=== PATIENT | female | born 1940 | race Caucasian/White ===

== ENCOUNTER 2016-07-05 10:28 | Day surgery (SDC) | payer MEDICARE, OTHER ==
--- NOTE | ~2016-07-05 | EGD ---
EGD REPORT [facility] [address] [address] NAME: NISHA FERRER : [birth year] STATUS : REG [facility]#: [id number] AGE: 75 ADM/REG DATE : 07/05/16 MR#: [id number] REPORT SERV DATE: 07/05/16 DICTATED BY: JESSE GRIJALVA DATE: 07/05/16 REPORT STATUS : Draft [facility]ANS[facility]: [facility] DATE: 07/05/16 Pulmonology Patient Name: Nisha Ferrer. Procedure Date: 07/05/2016 1:15 PM Date of : 1940 Attending MD: LOVE GRIJALVA MD Procedure Date No Time: 07/05/2016 Procedure: Bronchoscopy Indications: History of aero-digestive fistula and new cough Providers: LOVE GRIJALVA MD Referring MD: TERESA ROBERTO MD Medicines: Lidocaine 2% 20 mL Complications: No immediate complications Procedure: Pre-Anesthesia Assessment: - A History and Physical has been performed. Patient meds and allergies have been reviewed. The risks and benefits of the procedure and the sedation options and risks were discussed with the patient. All questions were answered and informed consent was obtained. Patient identification and proposed procedure were verified prior to the procedure by the physician and the nurse in the procedure room. Mental Status Examination: alert and oriented. Respiratory Examination: clear to auscultation. CV Examination: RRR, no murmurs, no S3 or S4. ASA Grade Assessment: III - A patient with severe systemic disease. After reviewing the risks and benefits, the patient was deemed in satisfactory condition to undergo the procedure. The anesthesia plan was to use general anesthesia. Immediately prior to administration of medications, the patient was re-assessed for adequacy to receive sedatives. The heart rate, respiratory rate, oxygen saturations, blood pressure, adequacy of pulmonary ventilation, and response to care were monitored throughout the procedure. The physical status of the patient was re-assessed after the procedure. After obtaining informed consent, the Bronchoscope was introduced through the mouth, via laryngeal mask airway and advanced to the tracheobronchial tree. The procedure was accomplished without difficulty. The patient tolerated the procedure well. Findings: The laryngeal mask airway is in normal position. The vocal cords move normally with breathing. The subglottic space is normal. The trachea is of normal caliber. The thania is sharp. The tracheobronchial tree was examined to at least the first subsegmental level. Bronchial mucosa and EGD REPORT [facility] [address] [place] [address] [address] [facility] [place]. [address] NAME: NISHA FERRER : [birth year] STATUS : REG [facility]#: [id number] AGE: 75 ADM/REG DATE : 07/05/16 MR#: [id number] REPORT SERV DATE: 07/05/16 DICTATED BY: JESSE GRIJALVA DATE: 07/05/16 REPORT STATUS : Draft TRANSCRIBED BY: [employer] DATE: 07/05/16 anatomy are normal; there are no endobronchial lesions, and no secretions. Impression: - The examination was normal - No evidence of aero-digestive fistula or inflammation at the prior site. Recommendation: - Follow up in clinic. - Proceed with PEJ tube removal tomorrow Attending Participation: I personally performed the entire procedure. LOVE GRIJALVA MD 07/05/2016 1:42 PM This report has been signed electronically. Number of Addenda: 0 Note Initiated On: 07/05/2016 1:15 PM [address] [place] [address]
[~2016-07-05 10:28] MED LIST: 8 HOUR650 MG PEG; 8 HOUR650 MG PO; AMB10 PO; AMB5 PO; ASAB PEG; ASAEC PO; ATEN25 PO; ATROVENTUD INH; ATV.5 PEG; ATV.5 PO; AUG875 PO; BISR PR; BREO ELLIPTA INH; BYSTOLIC2.5 MG PO; BYSTOLIC5 MG PO; C25 PO; C5 PO; CELEXA20 PO; CHLOR-PHENIR4 MG PEG; CO Q-10100 MG PEG; COENZYME Q10 PO; COZ25 PO; CRESTOR10 PO; CRESTOR20 MG PO; DELSYM30 MG/5 ML PO; DIGITEK0.125 MG PEG; DIGITEK0.125 MG PO; DIGITEK0.25 MG PO; DIGOXIN; DSS PO; DUONEB INH; EFFIENT10 PO; ELIQUIS 5 MG TAB5 MG PEG; ESTRADIOL0.025 MG TOP; FESO4 PO; FISH OIL PO; FISH-EPA1000 MG PO; FLONASE NAS; FOLIC ACID400 MC1 PO; FOLIC PO; GGACUDL PEG; GGEXPUD PO; GUIATUSS AC PEG; HALF81 PO; IMDUR30 PO; ISOSORBIDE PO; KCL20UDL PEG; KDUR20 PO; KLOR-CON 1010 MEQ PO; KLOR-CON M2020 MEQ PO; L20 PEG; L20 PO; L40 PO; LACT30UDL PEG; LACT30UDL PO; LAN25 PO; LIPITOR40 PEG; LIPITOR40 PO; LOP25 PEG; M-CLEAR WC PO; MAALOX MAX PEG; MAGNESIUM 250MG PO; MAGOX4 PEG; MAGOX4 PO; MUCO10%4ML PO; NITROSTAT0.4 MG SL; NORCO1 TA1 PEG; OCULAR LUBRICANT OPH; P20 PO; PLAVIX PO; PRIN2.5 PO; PROAIR HFA INH; PROBIOTIC PO; PROTONIX PEG; PROTONIX PO; PROVENTSOL INH; RAN500 PO; RANEXA1000 MG PO; RYTHMOL225 MG PEG; RYTHMOL225 MG PO; RYTHMOL300 MG PO; SINGULAIR1 PEG; SINGULAIR1 PO; SPIRIVA INH; SPIRIVA RESPIMAT INH; SUCR PO; SYMBICORT 160/41 INH INH; Spiriva Handihaler; T PO; TEARS PURE OPH; TESS PEG; TESS PO; VALTREX1 GM PEG; VFEND200 PEG; VIRTUSSIN PO; VIVELLE SY0.025 MG/2 TOP; VIVELLE-DOT TOP; VIVELLE-DOT0.025 MG TOP; XOPENEX0.63 MG INH; ZESTRIL2.5 MG PO; ZOCOR40 PO; ZOFRAN IM; ZYRTEC ALLGY10 MG PO; [UNRECOGNIZED DRUG - OTHER] NAS
[2016-07-05 10:51] LABS: BASOPHILS 0.1 %; BASOPHILS ABSOLUTE 0.01 10/3/uL (0.0-0.16); EOSINOPHILS 0.7 %; EOSINOPHILS ABSOLUTE 0.07 10/3/uL (0.0-0.53); HEMOGLOBIN 12.2 g/dL (12.0-16.0); IMMATURE GRANULOCYTES 0.2 %; IMMATURE GRANULOCYTES ABSOLUTE 0.02 10/3/uL (0.0-0.11); LYMPHOCYTES 17.3 %; MEAN PLATELET VOLUME 11.2 fL (9.2-13.0); MONOCYTES 6.9 %; MONOCYTES ABSOLUTE 0.68 10/3/uL (0.21-1.20); NEUTROPHILS 74.8 %; NEUTROPHILS ABSOLUTE 7.36 10/3/uL (2.02-8.40); PLATELET COUNT 339 10/3/uL (150-400); RBC DISTRIBUTION WIDTH 15.5 % (12.0-16.0); WHITE BLOOD CELLS 9.8 10/3/uL (4.5-10.5)
[2016-07-05 10:53] LABS: HEMATOCRIT 39.5 % (36.0-48.0); MANUAL DIFF NO %; MEAN CORPUS HGB CONC 30.9 g/dL (32.0-36.0); MEAN CORPUSCULAR HEMOGLOB 29.3 pg (26.0-34.0); RED CELL COUNT 4.16 10/6/uL (4.0-5.6)
[2016-07-05 11:02] LABS: BUN (BLOOD UREA NITROGEN) 13 MG/DL (6-23); CALCIUM, SERUM 9.3 MG/DL (8.5-10.4); CHLORIDE, SERUM 98 MMOL/L (96-112); CO2 (CARBON DIOXIDE) 33 MMOL/L (24-34); CREATININE 0.83 MG/DL (0.55-1.02); GFR AFRICAN AMERICAN 79 ML/MIN (>=60); GFR NON AFRICAN AMERICAN 68 ML/MIN (>=60); GLUCOSE, SERUM 117 MG/DL (60-99); POTASSIUM, SERUM 4.3 MMOL/L (3.5-5.3); SODIUM, SERUM 138 MMOL/L (135-148)
[2016-07-05 11:04] LABS: INTERNATIONAL NORMAL RATI 1.2 UNITS (-); PARTIAL THROMBO TIME 33.1 SEC (22.5-37.2); PROTIME (NOT ORD) 15.2 SEC (12.0-14.5)
[2016-09-14] MEDS ORDERED: DELSYM30 MG/5 ML PO (15:21)
[2016-09-14] MEDS ORDERED: PROAIR HFA INH (15:22)
[2016-12-03] MEDS ORDERED: [UNRECOGNIZED DRUG - OTHER] PO (15:46)
[2016-12-03] MEDS ORDERED: PROAIR HFA INH (15:47)
[2016-12-03] MEDS ORDERED: MAG OXIDE250 MG PO (15:47)
[2016-12-03] MEDS ORDERED: SPIRIVA INH (15:47)
[2016-12-03] MEDS ORDERED: DSS PO (15:47)
[2016-12-03] MEDS ORDERED: ALIGN4 MG PO (15:47)
[2016-12-03] MEDS ORDERED: NITROSTAT0.4 MG SL (15:48)
[2016-12-06] MEDS ORDERED: LEVAQUIN750 MG PO (13:30)
[2016-12-06] MEDS ORDERED: ULTRAM50 PO (13:34)
[2016-12-06] MEDS ORDERED: MACROBID PO (13:39)
== END 2016-07-05 23:59 | disposition home or self-care (01) ==
LOC: DMU 10:28
PROVIDERS: Internal Medicine
PROC: 0BJ08ZZ Inspection of Tracheobronchial Tree, Via Natural or Artificial Opening Endoscopic (ICD-10-PCS; principal; 2016-07-05 12:30)
DX: R05 Cough (principal); K22.8 Other specified diseases of esophagus; I10 Essential (primary) hypertension; I25.10 Atherosclerotic heart disease of native coronary artery without angina pectoris; J44.9 Chronic obstructive pulmonary disease, unspecified; Z91.041 Radiographic dye allergy status; Z79.01 Long term (current) use of anticoagulants; Z79.899 Other long term (current) drug therapy
CPT/HCPCS: 71010; 80048; 85025; 85610; 85730; 93005; J3010

== ENCOUNTER 2016-09-18 08:02 | Day surgery (SDC) | payer MEDICARE, OTHER ==
--- NOTE | ~2016-09-18 | EGD ---
EGD REPORT [facility] [address] [address] NAME: NISHA FERRER : [birth year] STATUS : REG [facility]#: [id number] AGE: 76 ADM/REG DATE : 09/18/16 MR#: [id number] REPORT SERV DATE: 09/18/16 DICTATED BY: JESSE GRIJALVA DATE: 09/18/16 REPORT STATUS : Draft [facility]ANS[facility]IB[facility]: [facility] DATE: 09/18/16 Pulmonology Patient Name: Nisha Ferrer Procedure Date: 09/18/2016 10:38 AM Date of : 1940 Attending MD: LOVE GRIJALVA MD Procedure Date No Time: 09/18/2016 Procedure: Bronchoscopy Indications: Chronic Cough Providers: LOVE GRIJALVA MD Referring MD: YANETH JULIAN IV, LOVE GRIJALVA MD Medicines: Lidocaine 2% 20 mL Complications: No immediate complications Procedure: Pre-Anesthesia Assessment: - A History and Physical has been performed. Patient meds and allergies have been reviewed. The risks and benefits of the procedure and the sedation options and risks were discussed with the patient. All questions were answered and informed consent was obtained. Patient identification and proposed procedure were verified prior to the procedure by the physician and the nurse in the pre-procedure area in the procedure room. Mental Status Examination: alert and oriented. Airway Examination: normal oropharyngeal airway. Respiratory Examination: clear to auscultation. CV Examination: normal and RRR, no murmurs, no S3 or S4. ASA Grade Assessment: IV - A patient with severe systemic disease that is a constant threat to life. After reviewing the risks and benefits, the patient was deemed in satisfactory condition to undergo the procedure. The anesthesia plan was to use general anesthesia. Immediately prior to administration of medications, the patient was re-assessed for adequacy to receive sedatives. The heart rate, respiratory rate, oxygen saturations, blood pressure, adequacy of pulmonary ventilation, and response to care were monitored throughout the procedure. The physical status of the patient was re-assessed after the procedure. After obtaining informed consent, the Bronchoscope was introduced through the mouth, via laryngeal mask airway and advanced to the tracheobronchial tree. The procedure was accomplished without difficulty. The patient tolerated the procedure well. The procedure was accomplished without difficulty. Findings: The laryngeal mask airway is in normal position. The vocal cords move EGD REPORT [place] [id number] [facility] [place]. [address] NAME: NISHA FERRER GAURAV : 38 STATUS : REG [facility] PAT#: [id number] AGE: 76 ADM/REG DATE : 09/18/16 MR#: [id number] REPORT SERV DATE: 09/18/16 DICTATED BY: JESSE GRIJALVA DATE: 09/18/16 REPORT STATUS : Draft TRANSCRIBED BY: [employer] DATE: 09/18/16 normally with breathing. The subglottic space is normal. The trachea is of normal caliber. The thania is sharp. The tracheobronchial tree was examined to at least the first subsegmental level. A small endobronchial nodule noted in the LLL. An endobronchial biopsy was performed in the left lower lobe of the lung using a forceps and sent for histopathology examination. One sample was obtained. Brushings were obtained in the left lower lobe of the lung and sent for routine cytology. One sample was obtained. Bronchoalveolar lavage was performed in the lingula of the lung and sent for cell count, cytology, bacterial culture, viral smears \T\ culture, and fungal and AFB analysis. 180 mL of fluid were instilled. 30 mL were returned. The return was cellular. Mucous plugs were present in the return fluid Impression: - A small nodule was noted in the LLL. - An endobronchial biopsy was performed. - Brushings were obtained. - Bronchoalveolar lavage was performed. Recommendation: - Await test results. - Chest X-ray. - Follow up in clinic. Attending Participation: I personally performed the entire procedure. LOVE GRIJALVA MD 09/18/2016 11:09 AM This report has been signed electronically. Number of Addenda: 0 Note Initiated On: 09/18/2016 10:38 AM [address] [id number]
--- NOTE | ~2016-09-18 | EGD ---
EGD REPORT [facility] [address] [address] NAME: NISHA FERRER : [birth year] STATUS : REG [facility]#: [id number] AGE: 76 ADM/REG DATE : 09/18/16 MR#: [id number] REPORT SERV DATE: 09/20/16 DICTATED BY: JESSE GRIJALVA DATE: 09/20/16 REPORT STATUS : Draft [facility] DATE: 09/20/16 Pulmonology Patient Name: Nisha Ferrer Procedure Date: 09/18/2016 10:38 AM Date of : 1940 Attending MD: LOVE GRIJALVA MD Procedure Date No Time: 09/18/2016 Procedure: Bronchoscopy Indications: Chronic Cough Providers: LOVE GRIJALVA MD Referring MD: YANETH JULIAN IV, LOVE GRIJALVA MD Medicines: Lidocaine 2% 20 mL Complications: No immediate complications Procedure: Pre-Anesthesia Assessment: - A History and Physical has been performed. Patient meds and allergies have been reviewed. The risks and benefits of the procedure and the sedation options and risks were discussed with the patient. All questions were answered and informed consent was obtained. Patient identification and proposed procedure were verified prior to the procedure by the physician and the nurse in the pre-procedure area in the procedure room. Mental Status Examination: alert and oriented. Airway Examination: normal oropharyngeal airway. Respiratory Examination: clear to auscultation. CV Examination: normal and RRR, no murmurs, no S3 or S4. ASA Grade Assessment: IV - A patient with severe systemic disease that is a constant threat to life. After reviewing the risks and benefits, the patient was deemed in satisfactory condition to undergo the procedure. The anesthesia plan was to use general anesthesia. Immediately prior to administration of medications, the patient was re-assessed for adequacy to receive sedatives. The heart rate, respiratory rate, oxygen saturations, blood pressure, adequacy of pulmonary ventilation, and response to care were monitored throughout the procedure. The physical status of the patient was re-assessed after the procedure. After obtaining informed consent, the Bronchoscope was introduced through the mouth, via laryngeal mask airway and advanced to the tracheobronchial tree. The procedure was accomplished without difficulty. The patient tolerated the procedure well. The procedure was accomplished without difficulty. Findings: The laryngeal mask airway is in normal position. The vocal cords move EGD REPORT [place] [id number] [facility] [place]. [address] NAME: NISHA FERRER GAURAV : 38 STATUS : REG [facility] PAT#: [id number] AGE: 76 ADM/REG DATE : 09/18/16 MR#: [id number] REPORT SERV DATE: 09/20/16 DICTATED BY: JESSE GRIJALVA DATE: 09/20/16 REPORT STATUS : Draft TRANSCRIBED BY: [employer] DATE: 09/20/16 normally with breathing. The subglottic space is normal. The trachea is of normal caliber. The thania is sharp. The tracheobronchial tree was examined to at least the first subsegmental level. A small endobronchial nodule noted in the LLL. An endobronchial biopsy was performed in the left lower lobe of the lung using a forceps and sent for histopathology examination. One sample was obtained. Brushings were obtained in the left lower lobe of the lung and sent for routine cytology. One sample was obtained. Bronchoalveolar lavage was performed in the lingula of the lung and sent for cell count, cytology, bacterial culture, viral smears \T\ culture, and fungal and AFB analysis. 180 mL of fluid were instilled. 30 mL were returned. The return was cellular. Mucous plugs were present in the return fluid Impression: - A small nodule was noted in the LLL. - An endobronchial biopsy was performed. - Brushings were obtained. - Bronchoalveolar lavage was performed. Recommendation: - Await test results. - Chest X-ray. - Follow up in clinic. Attending Participation: I personally performed the entire procedure. LOVE GRIJALVA MD 09/18/2016 11:09 AM This report has been signed electronically. Number of Addenda: 0 Note Initiated On: 09/18/2016 10:38 AM [address] [id number]
[2016-09-18 08:40] LABS: BASOPHILS 0.2 %; BASOPHILS ABSOLUTE 0.02 10/3/uL (0.0-0.16); EOSINOPHILS 1.6 %; EOSINOPHILS ABSOLUTE 0.15 10/3/uL (0.0-0.53); IMMATURE GRANULOCYTES 0.2 %; IMMATURE GRANULOCYTES ABSOLUTE 0.02 10/3/uL (0.0-0.11); LYMPHOCYTES 19.5 %; LYMPHOCYTES ABSOLUTE 1.79 10/3/uL (0.67-4.30); MEAN CORPUSCULAR HEMOGLOB 29.2 pg (26.0-34.0); MEAN CORPUSCULAR VOLUME 94.4 fL (80-100); MEAN PLATELET VOLUME 10.3 fL (9.2-13.0); MONOCYTES 9.1 %; MONOCYTES ABSOLUTE 0.83 10/3/uL (0.21-1.20); NEUTROPHILS 69.4 %; NEUTROPHILS ABSOLUTE 6.35 10/3/uL (2.02-8.40); PLATELET COUNT 315 10/3/uL (150-400); RBC DISTRIBUTION WIDTH 16.7 % (12.0-16.0); RED CELL COUNT 3.42 10/6/uL (4.0-5.6); WHITE BLOOD CELLS 9.2 10/3/uL (4.5-10.5)
[2016-09-18 08:41] LABS: HEMATOCRIT 32.3 % (36.0-48.0); MANUAL DIFF NO %
[2016-09-18 08:49] LABS: INTERNATIONAL NORMAL RATI 1.1 UNITS (-); PROTIME (NOT ORD) 14.3 SEC (12.0-14.5)
[2016-09-18 09:19] LABS: BUN (BLOOD UREA NITROGEN) 18 MG/DL (6-23); CALCIUM, SERUM 9.5 MG/DL (8.5-10.4); CHLORIDE, SERUM 107 MMOL/L (96-112); CO2 (CARBON DIOXIDE) 29 MMOL/L (24-34); CREATININE 0.73 MG/DL (0.55-1.02); GFR AFRICAN AMERICAN 92 ML/MIN (>=60); GFR NON AFRICAN AMERICAN 79 ML/MIN (>=60); GLUCOSE, SERUM 93 MG/DL (60-99); POTASSIUM, SERUM 4.8 MMOL/L (3.5-5.3); SODIUM, SERUM 141 MMOL/L (135-148)
[2016-09-18 12:55] LABS: BD FL LYMPH (NOT ORD) 6 %; BD FL SOURCE (NOT ORD) BAL; BF BASO (NOT OF) 0 %; BF LARGE MONONUCLEAR 88 %; BF TOTAL CELL CT (NOT ORD 207 /MM3; BODY FLUID EOS (NOT ORD) 0 %; BODY FLUID RBC (NOT ORD) 1000 /MM3; BODY FLUID SEG (NOT ORD) 6 %
[2016-12-03] MEDS ORDERED: [UNRECOGNIZED DRUG - OTHER] PO (15:46)
[2016-12-03] MEDS ORDERED: MAG OXIDE250 MG PO (15:47)
[2016-12-03] MEDS ORDERED: ALIGN4 MG PO (15:47)
[2016-12-03] MEDS ORDERED: PROAIR HFA INH (15:47)
[2016-12-03] MEDS ORDERED: DSS PO (15:47)
[2016-12-03] MEDS ORDERED: SPIRIVA INH (15:47)
[2016-12-03] MEDS ORDERED: NITROSTAT0.4 MG SL (15:48)
[2016-12-06] MEDS ORDERED: LEVAQUIN750 MG PO (13:30)
[2016-12-06] MEDS ORDERED: ULTRAM50 PO (13:34)
[2016-12-06] MEDS ORDERED: MACROBID PO (13:39)
== END 2016-09-18 23:59 | disposition home or self-care (01) ==
LOC: DMU 08:02
PROVIDERS: Anesthesiology; Internal Medicine
PROC: 0B9H8ZX Drainage of Lung Lingula, Via Natural or Artificial Opening Endoscopic, Diagnostic (ICD-10-PCS; principal; 2016-09-18 09:30)
PROC: 0BBB8ZX Excision of Left Lower Lobe Bronchus, Via Natural or Artificial Opening Endoscopic, Diagnostic (ICD-10-PCS; 2016-09-18 09:30)
PROC: 0BBJ8ZX Excision of Left Lower Lung Lobe, Via Natural or Artificial Opening Endoscopic, Diagnostic (ICD-10-PCS; 2016-09-18 09:30)
DX: R05 Cough (principal); I48.91 Unspecified atrial fibrillation; E78.00 Pure hypercholesterolemia, unspecified; E78.5 Hyperlipidemia, unspecified; I25.10 Atherosclerotic heart disease of native coronary artery without angina pectoris; J44.9 Chronic obstructive pulmonary disease, unspecified; K21.9 Gastro-esophageal reflux disease without esophagitis; I10 Essential (primary) hypertension; Z87.442 Personal history of urinary calculi; Z95.1 Presence of aortocoronary bypass graft; Z91.041 Radiographic dye allergy status; Z86.73 Personal history of transient ischemic attack (TIA), and cerebral infarction without residual deficits; Z88.8 Allergy status to other drugs, medicaments and biological substances; Z79.82 Long term (current) use of aspirin; Z79.899 Other long term (current) drug therapy; Z90.710 Acquired absence of both cervix and uterus; Z98.890 Other specified postprocedural states; Z90.49 Acquired absence of other specified parts of digestive tract
CPT/HCPCS: 71010; 80048; 85025; 85610; 85730; 87015; 87070; 87102; 87116; 87205; 88112; 88305; 89051; 93005

== ENCOUNTER 2016-10-17 13:05 | Inpatient (IN) | payer MEDICARE, OTHER ==
--- NOTE | ~2016-10-17 | DS ---
Discharge Summary [facility] [address] [place]. [address] NAME: JORJE STRICKLAND : 38 STATUS : DIS IN PAT#: [id number] AGE: 76 ADM/REG DATE : 10/17/16 MR#: [id number] REPORT SERV DATE: 10/22/16 DICTATED BY: DIEGO GE DATE: 10/21/16 REPORT STATUS : Draft TRANSCRIBED BY: [employer] DATE: 10/21/16 ADMISSION DATE: 10/17/2016 DISCHARGE DATE: 10/21/2016 DISCHARGE DIAGNOSES: 1. Sepsis due to acute Klebsiella pneumoniae pyelonephritis. 2. Acute Klebsiella pneumoniae pyelonephritis, right side. 3. Paroxysmal atrial fibrillation/flutter with previous ablations. 4. 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 5. Chronic obstructive pulmonary disease. 6. Peripheral arterial disease. 7. History of previous renal stones. 8. Hypertension. 9. Chronic elevated left hemidiaphragm. 10.Previous aspiration pneumonitis associated with bronchoesophageal fistula. 11.Chronic anxiety and insomnia. HISTORY: This patient developed sudden chills, fever, nausea, along with some right flank pain. Because of this, she came to the emergency room at [facility]. Temperature was 100, white count elevated at 15.2. CT scan of the abdomen and pelvis showing some perirenal fat plane infiltration on the right kidney, concerning for pyelonephritis. Urinalysis was consistent with urinary tract infection with positive nitrite, moderate leukocyte esterase, 97 white blood cells, occasional bacteria, and 2 red blood cells. In the emergency room, she received not only IV fluids, but also a dose of Rocephin intravenously. Our admitting partner continued some intravenous saline, but switched her antibiotics over to cefepime 1 g IV every six hours which Pharmacy adjusted to every eight hours based on her estimated creatinine clearance of approximately 45 mL/minute. The patient's procalcitonin was elevated at 2.38. Her serum digoxin level was 0.7. Her creatinine stayed normal through her time here in the hospital. Her white blood count went up to 18.7, then 16.5, then normalized at 10.3. Her right flank pain resolved. No fevers. The patient was noted to have hemoglobin of 9.9. She had an MCHC that was low at 30.9. Her iron studies reveal a low serum iron of 9, low percent iron saturation of 3, TIBC of 299, and ferritin of 51, which is relatively low given the acute inflammatory scenario that she is in. Her B12 level was normal at 408. Therefore, we have elected to supplement her with oral iron and have her PCP follow up her stool guaiac since she is on Eliquis and follow up her hemoglobin and iron level as well. The patient states and corroborates that she has just had a poor appetite over the last two weeks. Prior to that, her appetite was good. She, of course, had gone through major stress with the bronchoesophageal fistula for which she had a stent and she had a J- tube, but she has been on her oral diet and had been doing well until 2 weeks ago. Her TSH was normal here. Her appetite has started to improve. Her PCP and Dr. Lane, her GI, will follow this up as well. Discharge Summary [address] [address] NAME: JORJE STRICKLAND GAURAV : 38 STATUS : DIS IN PAT#: [id number] AGE: 76 ADM/REG DATE : 10/17/16 MR#: [id number] REPORT SERV DATE: 10/22/16 DICTATED BY: DIEGO GE DATE: 10/21/16 REPORT STATUS : Draft TRANSCRIBED BY: [employer] DATE: 10/21/16 The urine cultures came back showing greater than 100,000 E. coli. Blood cultures were negative. The cefepime was simplified to Ancef and at discharge, switched over to cefadroxil. DISCHARGE MEDICATIONS: Eliquis 5 mg b.i.d., aspirin 81 mg daily, Tenormin 12.5 mg daily, Lipitor 40 mg daily, Celexa 20 mg at bedtime, digoxin half of a 0.125-mg tablet at bedtime, Colace 100 mg b.i.d., folic acid 800 mcg daily, Lasix 40 mg daily, Zyrtec 10 mg daily, Singulair 10 mg at bedtime, Protonix 40 mg daily, KCl 20 mEq daily, Spiriva one capsule inhaled daily, Tylenol p.r.n. pain that is mild, Flonase nasal spray p.r.n., Ativan 0.5 mg at bedtime as needed for insomnia which is a chronic medicine for her, nitroglycerin 0.4 mg sublingual p.r.n. chest pain, Ambien 10 mg at bedtime as needed for sleep which is a chronic medicine also for her, albuterol HFA two puffs p.r.n. shortness of breath, magnesium 250 mg daily, she takes an xnzv-hjg-ixydkqh probiotic chronically and we are recommending she continue that, cefadroxil 1000 mg p.o. b.i.d. for another 5 days. I spent 27 minutes today with the patient and her and with discharge planning. DICTATED BY: Diego Ge M.D. RSG/MODL Diego Ge M.D. / [id number] CC: Radha Davila M.D. Krishnendu Bhadra, M.D. David Collins, M.D. Dannis Hood Jr., M.D. Nathan Mull IV, M.D. David Sahaj, M.D.
--- NOTE | ~2016-10-17 | HP ---
History And Physical [place] [address] [place]. [address] NAME: JORJE FERRER : [birth year] STATUS : ADM IN [facility]#: [id number] AGE: 76 ADM/REG DATE : 10/17/16 MR#: [id number] REPORT SERV DATE: 10/18/16 DICTATED BY: ANKUR GROVER DATE: 10/17/16 REPORT STATUS : Draft TRANSCRIBED BY: [employer] DATE: 10/17/16 DATE OF ADMISSION: 10/17/2016 POINT OF ENTRY: [facility] Emergency Department. PRIMARY EN[employer]ISE RESOURCE PLANNER: Divine Burleson M.D. CHIEF COMPLAINT: Chills, rigors, and right flank pain. HISTORY OF PRESENT ILLNESS: Ms Ferrer is a 76-year-old female with history of coronary artery disease, atrial fibrillation, atrial flutter, peripheral arterial disease, COPD, and a history of bronchoesophageal fistula, who presents to the emergency department today with a one-day history of severe chills, rigors, and right flank pain. The patient states she has had some dysuria as well as urinary odor for the past two or three days. While shopping today at [employer] she developed the acute onset of chills, rigors, and right-sided flank pain. The patient does states she checked her temperature as well and was about 100 degrees Fahrenheit. They subsequently presented to the emergency department for further evaluation. She denies any chest pain, palpitations, worsening of her baseline shortness of breath, abdominal pain, diarrhea, constipation, melena, hematochezia, hematuria, or hematemesis. She does report, she is having some nausea as well as frequent dry heaving as well. Comprehensive system otherwise negative unless listed in history of present illness. Initial evaluation in the emergency department was notable for a heart rate of 66, but a temperature of 100.3 degrees Fahrenheit. White count was elevated at 15,200. Urinalysis was positive for urinary tract infection. CT of the abdomen and pelvis were notable for some cali-renal fat plane infiltration of the right kidney concerning for pyelonephritis, she was subsequently admitted to the Hospitalist Service for further evaluation and management. PREVIOUS MEDICAL HISTORY: 1. Coronary artery disease with prior PCI. 2. Atrial flutter and atrial fibrillation, status post multiple cardiac ablations. 3. Bronchoesophageal fistula status post stent placement. 4. Peripheral arterial disease. 5. Chronic vertigo. 6. Iron-deficiency anemia. 7. Hypertension. 8. Hyperlipidemia. 9. COPD, not on home oxygen. 10.Chronically elevated left hemidiaphragm. 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 12.History of aspiration and aspiration pneumonitis. History And Physical [address] [address] NAME: JORJE FERRER : [birth year] STATUS : ADM IN [facility]#: [id number] AGE: 76 ADM/REG DATE : 10/17/16 MR#: [id number] REPORT SERV DATE: 10/18/16 DICTATED BY: ANKUR GROVER DATE: 10/17/16 REPORT STATUS : Draft TRANSCRIBED BY: [employer]LINE DATE: 10/17/16 PAST SURGICAL HISTORY: 1. Multiple cardiac ablations. 2. Sinus surgery. 3. Abdominal hysterectomy. 4. Cholecystectomy. ALLERGIES: TO IV CONTRAST, PHENERGAN, AND ADHESIVE TAPE. HOME MEDICATIONS: 1. Tylenol 650 mg q.8 hours. 2. ProAir two puff inhalation q.h.s. 3. Eliquis 5 mg b.i.d. 4. Aspirin 81 mg daily. 5. Atenolol 12.5 mg daily. 6. Atorvastatin 40 mg q.h.s. 7. Zyrtec 10 mg daily. 8. Celexa 20 mg q.h.s. 9. Digoxin 0.0625 mg q.h.s. 10.Colace 100 mg q.h.s. 11.Flonase nasal spray, one spray nasal q.h.s. 12.Folic acid 800 mcg daily. 13.Lasix 40 mg daily. 14.Ativan 0.5 mg q.h.s. and p.r.n. 15.Singulair 10 mg q.h.s. 16.Nitroglycerin p.r.n. 17.Protonix 40 mg daily. 18.Potassium chloride 20 mEq daily. 19.Spiriva one cap inhalation daily. 20.Magnesium 250 mg daily. 21.Zmel-sal-byhwlzq probiotic one tablet daily. 22.Ambien 10 mg q.h.s. p.r.n. SOCIAL HISTORY: Denies any tobacco, alcohol, or illicits. FAMILY HISTORY: Mother with diabetes and coronary artery disease. Father also with diabetes and coronary artery disease. Siblings with coronary artery disease. LABS AND IMAGIN. White count is 15.2, hemoglobin is 9.9, hematocrit is 32.5, and platelet count is 255. INR 1.9. 2. Sodium 139, potassium 4.2, chloride 104, carbon dioxide 25, BUN 15, creatinine 0.87, glucose is 110, calcium is 9.0, protein is 7.2, albumin 3.4, bilirubin is 1.5, ALT is 22, AST is 25, and alkaline phosphatase is 149. 3. Lactic acid is 1.3, procalcitonin is 0.19. 4. Urinalysis; spec gravity is 1.011 hazy with moderate leukocyte esterase, positive nitrites, with 8 red and 97 white blood cells per high-powered field. 5. Chest x-ray per my review shows stable elevated left hemidiaphragm as well as evidence History And Physical [address] [address] NAME: JORJE FERRER : 38 STATUS : ADM IN [facility]#: [id number] AGE: 76 ADM/REG DATE : 10/17/16 MR#: [id number] REPORT SERV DATE: 10/18/16 DICTATED BY: ANKUR GROVER DATE: 10/17/16 REPORT STATUS : Draft TRANSCRIBED BY: [employer]LINE DATE: 10/17/16 of prior midline sternotomy, otherwise no acute cardiopulmonary abnormality. 6. CT scan of the abdomen and pelvis shows subtle perirenal fat infiltration around the right kidney as well as bilateral nonobstructing renal calculi. PHYSICAL EXAMINATION: VITAL SIGNS: Temperature is 100.3 degrees Fahrenheit, pulse of 66, respirations 18, saturating 100% on room air, and blood pressure 167/71. On recheck, pulse is now 70, blood pressure 130/98. GENERAL: The patient is awake and alert, in no acute distress. Resting comfortably in bed. She is an elderly female. is at bedside. HEENT: Atraumatic and normocephalic. Moist mucous membranes. Pupils equal, round, reactive to light and accommodation. Extraocular eye movements intact. No scleral icterus. NECK: No jugular venous distention. No carotid bruits. CARDIAC: Regular rate and rhythm. No murmurs or gallops. Normal S1, S2. LUNGS: Clear to auscultation bilaterally. No wheezes, rhonchi, or crackles. Does have decreased breath sounds at bases and prolonged respiratory phase. ABDOMEN: Soft, mildly tender to palpation over the right flank and in the costovertebral angle. Otherwise, no rebound, guarding, or rigidity. EXTREMITIES: Warm and perfused. No cyanosis, clubbing, or edema. SKIN: Warm and dry. PSYCH: Affect appropriate. NEURO: Alert and oriented x3. Cranial nerves 2 through 12 grossly intact. Speech is normal. Gait is not assessed. ASSESSMENT AND PLAN: Ms Ferrer is a 76-year-old female, who presents with a few days of dysuria as well as chills, rigors, and low-grade fevers and flank pain, and found to have evidence of sepsis and pyelonephritis. PROBLEM LIST: 1. Pyelonephritis. 2. Sepsis. 3. History of atrial flutter and atrial fibrillation. 4. History of bronchoesophageal fistula. 5. History of chronic obstructive pulmonary disease. 6. History of coronary artery disease. PLAN: 1. Pyelonephritis with sepsis. We will place the patient on IV cefepime as well as continue IV fluids. Her lactic acid is within normal limits as is procalcitonin level. Follow up urine and blood cultures. 2. Nephrolithiasis. Pain control p.r.n. as well as IV fluids. 3. History of atrial fibrillation, atrial flutter. EKG is pending, but per review of telemetry, she appears to be in normal sinus rhythm. Continue beta manuel and Eliquis. 4. COPD. No evidence of any acute exacerbation at this time. 5. History of coronary artery disease. Checking EKG, but she denies any chest pain. 6. DVT prophylaxis. The patient is already on Eliquis. History And Physical [address] [address] NAME: JORJE FERRER : 38 STATUS : ADM IN [facility]#: [id number] AGE: 76 ADM/REG DATE : 10/17/16 MR#: [id number] REPORT SERV DATE: 10/18/16 DICTATED BY: ANKUR GROVER DATE: 10/17/16 REPORT STATUS : Draft TRANSCRIBED BY: [employer]LINE DATE: 10/17/16 CODE STATUS: The patient wished to be full code. JCLj/MERLINE Ankur Grover MD / [id number] CC: Radha Davila M.D. Dannis Hood Jr., M.D.
[2016-10-17 15:26] LABS: BASOPHILS 0.1 %; BASOPHILS ABSOLUTE 0.01 10/3/uL (0.0-0.16); EOSINOPHILS 0.3 %; EOSINOPHILS ABSOLUTE 0.04 10/3/uL (0.0-0.53); HEMATOCRIT 32.5 % (36.0-48.0); HEMOGLOBIN 9.9 g/dL (12.0-16.0); IMMATURE GRANULOCYTES 0.3 %; IMMATURE GRANULOCYTES ABSOLUTE 0.05 10/3/uL (0.0-0.11); LYMPHOCYTES 6.9 %; LYMPHOCYTES ABSOLUTE 1.05 10/3/uL (0.67-4.30); MANUAL DIFF NO %; MEAN CORPUS HGB CONC 30.5 g/dL (32.0-36.0); MEAN CORPUSCULAR HEMOGLOB 28.4 pg (26.0-34.0); MEAN CORPUSCULAR VOLUME 93.4 fL (80-100); MONOCYTES 7.6 %; MONOCYTES ABSOLUTE 1.15 10/3/uL (0.21-1.20); NEUTROPHILS 84.8 %; NEUTROPHILS ABSOLUTE 12.88 10/3/uL (2.02-8.40); PLATELET COUNT 255 10/3/uL (150-400); RBC DISTRIBUTION WIDTH 15.6 % (12.0-16.0); RED CELL COUNT 3.48 10/6/uL (4.0-5.6); WHITE BLOOD CELLS 15.2 10/3/uL (4.5-10.5)
[2016-10-17 15:36] LABS: ASCORBIC ACID (UR NOT ORDER) NEG (NEG); BILIRUBIN, URINE NEGATIVE (NEG); ER URINALYSIS TAT 0 Hrs 18 Mins; KETONE, URINE NEGATIVE (NEG); LEUKOCYTE ESTERASE(NOT OR MOD (NEG); WBC (NOT ORDERED) (RFLEX) 97 (0-5)
[2016-10-17 15:38] LABS: NITRITE (URINE) POS (NEG)
[2016-10-17 15:42] LABS: A/G RATIO 0.9 (0.7-1.9); ALBUMIN 3.4 G/DL (3.5-5.0); ALKALINE PHOSPHATASE 149 U/L (45-117); BUN (BLOOD UREA NITROGEN) 15 MG/DL (6-23); CHLORIDE, SERUM 104 MMOL/L (96-112); CO2 (CARBON DIOXIDE) 25 MMOL/L (24-34); CREATININE 0.87 MG/DL (0.55-1.02); GFR AFRICAN AMERICAN 74 ML/MIN (>=60); GFR NON AFRICAN AMERICAN 64 ML/MIN (>=60); GLOBULIN 3.8 G/DL (2.5-4.1); GLUCOSE, SERUM 110 MG/DL (60-99); POTASSIUM, SERUM 4.2 MMOL/L (3.5-5.3); SGOT(AST) 25 U/L (5-40); SGPT(ALT) 22 U/L (5-65); SODIUM, SERUM 139 MMOL/L (135-148); TOTAL BILIRUBIN 1.5 MG/DL (0-1.2); TOTAL PROTEIN 7.2 G/DL (6.0-8.5)
[2016-10-17 16:49] LABS: INTERNATIONAL NORMAL RATI 1.9 UNITS (-); PARTIAL THROMBO TIME 38.7 SEC (22.5-37.2)
[2016-10-17 16:53] LABS: PROTIME (NOT ORD) 21.3 SEC (12.0-14.5)
[2016-10-17 17:01] LABS: LACTATE 1.3 MMOL/L (0.3-2.4)
[2016-10-17] MEDS ORDERED: PROAIR HFA INH (17:40)
[2016-10-17] MEDS ORDERED: ELIQUIS 5 MG TAB5 MG PO (17:40)
[2016-10-17] MEDS ORDERED: 8 HOUR650 MG PO (17:40)
[2016-10-17] MEDS ORDERED: ATEN25 PO (17:41)
[2016-10-17] MEDS ORDERED: LIPITOR40 PO (17:41)
[2016-10-17] MEDS ORDERED: HALF81 PO (17:41)
[2016-10-17] MEDS ORDERED: CELEXA20 PO (17:42)
[2016-10-17] MEDS ORDERED: ZYRTEC ALLGY10 MG PO (17:42)
[2016-10-17] MEDS ORDERED: LAN125 PO (17:43)
[2016-10-17] MEDS ORDERED: L40 PO (17:44)
[2016-10-17] MEDS ORDERED: DSS PO (17:44)
[2016-10-17] MEDS ORDERED: FOLIC ACID800 MCG PO (17:44)
[2016-10-17] MEDS ORDERED: FLONASE NAS (17:44)
[2016-10-17] MEDS ORDERED: NITROSTAT0.4 MG SL (17:45)
[2016-10-17] MEDS ORDERED: SINGULAIR1 PO (17:45)
[2016-10-17] MEDS ORDERED: ATV.5 PO (17:45)
[2016-10-17] MEDS ORDERED: PROTONIX PO (17:45)
[2016-10-17] MEDS ORDERED: MAGNESIUM 250MG PO (17:46)
[2016-10-17] MEDS ORDERED: KLOR-CON M2020 MEQ PO (17:46)
[2016-10-17] MEDS ORDERED: SPIRIVA (17:46)
[2016-10-17] MEDS ORDERED: OTC PROBIOTIC PO (17:47)
[2016-10-17] MEDS ORDERED: AMB10 PO (17:47)
[2016-10-18 05:34] LABS: BASOPHILS 0.2 %; BASOPHILS ABSOLUTE 0.03 10/3/uL (0.0-0.16); EOSINOPHILS 0 %; HEMOGLOBIN 8.9 g/dL (12.0-16.0); IMMATURE GRANULOCYTES 0.3 %; IMMATURE GRANULOCYTES ABSOLUTE 0.06 10/3/uL (0.0-0.11); LYMPHOCYTES 4.8 %; LYMPHOCYTES ABSOLUTE 0.89 10/3/uL (0.67-4.30); MEAN CORPUS HGB CONC 31.4 g/dL (32.0-36.0); MEAN CORPUSCULAR HEMOGLOB 29.5 pg (26.0-34.0); MEAN CORPUSCULAR VOLUME 93.7 fL (80-100); MEAN PLATELET VOLUME 11.3 fL (9.2-13.0); MONOCYTES 11.4 %; MONOCYTES ABSOLUTE 2.14 10/3/uL (0.21-1.20); NEUTROPHILS 83.3 %; NEUTROPHILS ABSOLUTE 15.58 10/3/uL (2.02-8.40); PLATELET COUNT 212 10/3/uL (150-400); RBC DISTRIBUTION WIDTH 15.8 % (12.0-16.0); RED CELL COUNT 3.02 10/6/uL (4.0-5.6); WHITE BLOOD CELLS 18.7 10/3/uL (4.5-10.5)
[2016-10-18 05:39] LABS: HEMATOCRIT 28.3 % (36.0-48.0); MANUAL DIFF NO %
[2016-10-18 05:40] LABS: BUN (BLOOD UREA NITROGEN) 17 MG/DL (6-23); CHLORIDE, SERUM 104 MMOL/L (96-112); CO2 (CARBON DIOXIDE) 24 MMOL/L (24-34); CREATININE 0.86 MG/DL (0.55-1.02); GFR AFRICAN AMERICAN 76 ML/MIN (>=60); GFR NON AFRICAN AMERICAN 65 ML/MIN (>=60); POTASSIUM, SERUM 4.5 MMOL/L (3.5-5.3); SODIUM, SERUM 136 MMOL/L (135-148)
[2016-10-18 05:44] LABS: CALCIUM, SERUM 7.9 MG/DL (8.5-10.4); GLUCOSE, SERUM 149 MG/DL (60-99)
[2016-10-18 09:37] LABS: DIGOXIN 0.7 NG/ML (0.8-2.0)
[2016-10-18 10:10] LABS: PROCALCITONIN 2.38 ng/mL (<0.5)
[2016-10-19 06:01] LABS: BASOPHILS 0.1 %; BASOPHILS ABSOLUTE 0.01 10/3/uL (0.0-0.16); EOSINOPHILS 0.5 %; EOSINOPHILS ABSOLUTE 0.09 10/3/uL (0.0-0.53); HEMATOCRIT 28.2 % (36.0-48.0); HEMOGLOBIN 8.8 g/dL (12.0-16.0); IMMATURE GRANULOCYTES 0.4 %; IMMATURE GRANULOCYTES ABSOLUTE 0.06 10/3/uL (0.0-0.11); LYMPHOCYTES 3.9 %; LYMPHOCYTES ABSOLUTE 0.65 10/3/uL (0.67-4.30); MEAN CORPUS HGB CONC 31.2 g/dL (32.0-36.0); MEAN CORPUSCULAR VOLUME 93.1 fL (80-100); MEAN PLATELET VOLUME 11.4 fL (9.2-13.0); MONOCYTES 8.7 %; MONOCYTES ABSOLUTE 1.43 10/3/uL (0.21-1.20); NEUTROPHILS 86.4 %; NEUTROPHILS ABSOLUTE 14.23 10/3/uL (2.02-8.40); PLATELET COUNT 229 10/3/uL (150-400); RBC DISTRIBUTION WIDTH 15.7 % (12.0-16.0); RED CELL COUNT 3.03 10/6/uL (4.0-5.6); WHITE BLOOD CELLS 16.5 10/3/uL (4.5-10.5)
[2016-10-19 06:10] LABS: MANUAL DIFF NO %
[2016-10-19 06:17] LABS: ALKALINE PHOSPHATASE 138 U/L (45-117); BUN (BLOOD UREA NITROGEN) 19 MG/DL (6-23); CALCIUM, SERUM 8.5 MG/DL (8.5-10.4); CHLORIDE, SERUM 105 MMOL/L (96-112); CO2 (CARBON DIOXIDE) 25 MMOL/L (24-34); CREATININE 0.99 MG/DL (0.55-1.02); GFR AFRICAN AMERICAN 64 ML/MIN (>=60); GFR NON AFRICAN AMERICAN 55 ML/MIN (>=60); POTASSIUM, SERUM 4.2 MMOL/L (3.5-5.3); SGOT(AST) 29 U/L (5-40); SGPT(ALT) 24 U/L (5-65); SODIUM, SERUM 136 MMOL/L (135-148); TOTAL PROTEIN 6.1 G/DL (6.0-8.5)
[2016-10-19 06:18] LABS: A/G RATIO 0.7 (0.7-1.9); ALBUMIN 2.6 G/DL (3.5-5.0); GLOBULIN 3.5 G/DL (2.5-4.1); GLUCOSE, SERUM 103 MG/DL (60-99)
[2016-10-19 15:19] LABS: % IRON SAT 3 % (20-50); FERRITIN 51 NG/ML (8-252); IRON BINDING CAPACITY 299 MCG/DL (225-410); IRON, SERUM 9 MCG/DL (35-150)
[2016-10-20 05:05] LABS: BASOPHILS 0.2 %; BASOPHILS ABSOLUTE 0.02 10/3/uL (0.0-0.16); EOSINOPHILS 2.6 %; EOSINOPHILS ABSOLUTE 0.27 10/3/uL (0.0-0.53); HEMATOCRIT 27.8 % (36.0-48.0); HEMOGLOBIN 8.6 g/dL (12.0-16.0); IMMATURE GRANULOCYTES 0.2 %; IMMATURE GRANULOCYTES ABSOLUTE 0.02 10/3/uL (0.0-0.11); LYMPHOCYTES 9.6 %; LYMPHOCYTES ABSOLUTE 0.99 10/3/uL (0.67-4.30); MEAN CORPUS HGB CONC 30.9 g/dL (32.0-36.0); MEAN CORPUSCULAR HEMOGLOB 28.8 pg (26.0-34.0); MEAN PLATELET VOLUME 10.9 fL (9.2-13.0); MONOCYTES 10.1 %; MONOCYTES ABSOLUTE 1.04 10/3/uL (0.21-1.20); NEUTROPHILS 77.3 %; NEUTROPHILS ABSOLUTE 7.99 10/3/uL (2.02-8.40); PLATELET COUNT 230 10/3/uL (150-400); RBC DISTRIBUTION WIDTH 15.7 % (12.0-16.0); RED CELL COUNT 2.99 10/6/uL (4.0-5.6); WHITE BLOOD CELLS 10.3 10/3/uL (4.5-10.5)
[2016-10-20 05:06] LABS: MANUAL DIFF NO %
[2016-10-20 05:16] LABS: BUN (BLOOD UREA NITROGEN) 16 MG/DL (6-23); CALCIUM, SERUM 8.3 MG/DL (8.5-10.4); CHLORIDE, SERUM 106 MMOL/L (96-112); CO2 (CARBON DIOXIDE) 29 MMOL/L (24-34); CREATININE 0.83 MG/DL (0.55-1.02); GFR AFRICAN AMERICAN 79 ML/MIN (>=60); GFR NON AFRICAN AMERICAN 68 ML/MIN (>=60); GLUCOSE, SERUM 87 MG/DL (60-99); SODIUM, SERUM 140 MMOL/L (135-148)
[2016-10-21] MEDS ORDERED: NUIRONCAP PO (09:51)
[2016-10-21] MEDS ORDERED: DURICEF PO (09:55)
[2016-12-03] MEDS ORDERED: [UNRECOGNIZED DRUG - OTHER] PO (15:46)
[2016-12-03] MEDS ORDERED: DSS PO (15:47)
[2016-12-03] MEDS ORDERED: ALIGN4 MG PO (15:47)
[2016-12-03] MEDS ORDERED: MAG OXIDE250 MG PO (15:47)
[2016-12-03] MEDS ORDERED: PROAIR HFA INH (15:47)
[2016-12-03] MEDS ORDERED: SPIRIVA INH (15:47)
[2016-12-03] MEDS ORDERED: NITROSTAT0.4 MG SL (15:48)
[2016-12-06] MEDS ORDERED: LEVAQUIN750 MG PO (13:30)
[2016-12-06] MEDS ORDERED: ULTRAM50 PO (13:34)
[2016-12-06] MEDS ORDERED: MACROBID PO (13:39)
== END 2016-10-21 10:35 | disposition home or self-care (01) | DRG 872 ==
LOC: ER 13:05 → 6NO 21:37
PROVIDERS: Emergency Medicine; Hospitalist; Internal Medicine; Nurse Practitioner
DX: A41.9 Sepsis, unspecified organism (principal); E44.0 Moderate protein-calorie malnutrition; I48.92 Unspecified atrial flutter; J44.9 Chronic obstructive pulmonary disease, unspecified; I48.0 Paroxysmal atrial fibrillation; N10 Acute pyelonephritis; F41.9 Anxiety disorder, unspecified; N20.0 Calculus of kidney; I25.10 Atherosclerotic heart disease of native coronary artery without angina pectoris; B96.1 Klebsiella pneumoniae [K. pneumoniae] as the cause of diseases classified elsewhere; I73.9 Peripheral vascular disease, unspecified; J98.6 Disorders of diaphragm; G47.00 Insomnia, unspecified; F50.89 Other specified eating disorder; Z87.01 Personal history of pneumonia (recurrent); Z79.02 Long term (current) use of antithrombotics/antiplatelets; Z79.82 Long term (current) use of aspirin; Z87.442 Personal history of urinary calculi; Z83.3 Family history of diabetes mellitus; Z82.49 Family history of ischemic heart disease and other diseases of the circulatory system; Z68.22 Body mass index [BMI] 22.0-22.9, adult
CPT/HCPCS: 71020; 74176; 80048; 80053; 80162; 81001; 82607; 82728; 83540; 83550; 83605; 84145; 84443; 85025; 85610; 85730; 87040; 87077; 87086; 87186; 93005; 96374; 96375; 99285; A9270-GY; J0690; J0692; J1170; J2405